=== PATIENT | male | born 1980 | race Caucasian/White ===

== ENCOUNTER 2020-05-04 11:55 | Emergency (ER) | payer OTHER, SELFPAY ==
--- NOTE | 2020-05-04 | ECG_ITS ---
Test Reason : CRISIS Blood Pressure : / mmHG Vent. Rate : 072 BPM Atrial Rate : 072 BPM P-R Int : 154 ms QRS Dur : 116 ms QT Int : 374 ms P-R-T Axes : 051 -02 027 degrees QTc Int : 409 ms Normal sinus rhythm Left ventricular hypertrophy with QRS widening Nonspecific T wave abnormality Abnormal ECG When compared with ECG of 08-DEC-2019 23:07, No significant change was found Referred By: Alan Armijo Electronically Signed By:JAMI HARGROVE
[2020-05-04 12:00] VITALS: BP 130/93; PULSE 112; RESP 18; TEMP 36.8; O2SAT 98; BMI 30.1
--- NOTE | 2020-05-04 12:24 | ED_ITS ---
HPI - Psych General Chief Complaint: Psychiatric Symptoms Stated Complaint: crisis wants to harm self Time Seen by Provider: 05/04/20 12:24 Source: patient Mode of arrival: ambulatory Limitations: no limitations History of Present Illness MD complaint: suicidal ideation and feels depressed Onset (ago): week(s) (few) Duration: constant History of same: Yes Relieving factors: none Exacerbating factors: none Context: not taking psychiatric medications and significant life stressor Associated psychiatric symptoms: depression and suicidal ideation Associated symptoms: denies other symptoms Treatments prior to arrival: none If self harm: admits thoughts of self harm Related Data Allergies Allergy/AdvReac Type Severity Reaction Status Date / Time No Known Allergies Allergy Unverified 02/10/20 16:41 [No Known Allergies*] Review of Systems Review of Systems: Constitutional : No Fever, No Chills ENT/Mouth : No Ear Pain, No Nasal Congestion, No sore throat Eyes: No Eye Pain, No Swelling, No Redness Cardiovascular : No Chest Pain, No SOB Respiratory : No Cough, No Sputum, No Dyspnea Gastrointestinal : No Nausea, No Vomiting, No Diarrhea, No Hematochezia, No Melena Genitourinary : No Dysuria, No Urinary Frequency, No Hematuria Musculoskeletal : No Myalgias Skin : No Skin Lesions, No rash Neuro : No Weakness, No Numbness, No Paresthesias, No Dizziness, No Headache Psych : positive Anxiety, positive Depression, positive SI, no HI Heme/Lymph: No Lymphadenopathy Endocrine : No Polyuria, No Polydipsia All other systems reviewed and are negative PMFSH Past Medical History Attestation statement: The following information was validated with the patient. Source: old records reviewed Medical History Anxiety Bipolar 1 disorder Depression Schizophrenia Social History Social History (Updated 05/04/20 @ 12:28 by Arlin Wright DO) Smoking Status: Current every day smoker Use of substances other than those prescribed or required for medical reasons: Yes Advance Directives: No Advance Directives Information Provided: Yes Physical Exam Vital Signs: Vital Signs: Last Vital Signs Temp 98.6 F 05/04/20 13:56 Pulse 101 H 05/04/20 13:56 Resp 16 05/04/20 13:56 BP 128/90 H 05/04/20 13:56 Pulse Ox 99 05/04/20 13:56 Body Mass Index 30.1 Appearance: Alert. Oriented X3. No acute distress. Eyes: Pupils equal, round and reactive to light. ENT: Pharynx normal. Neck: Normal inspection. Neck supple. CVS: Normal heart rate and rhythm. Pulses normal. Respiratory: No respiratory distress. Breath sounds normal. Abdomen: Soft and nontender. Skin: Skin warm and dry. Normal skin color. Normal skin turgor. Extremities: No lower extremity edema. No calf ttp Neuro: Oriented X 3. No motor deficit. No sensory deficit. CN 2 - 12intact Psych: + SI, + anxiety and depression Course Course Course Narrative: medically cleared for [facility] MDM - Psych MDM Narrative Medical decision making narrative: 39 yo male with depression/substance abuse here with SI will need labs, [facility] consult Lab Data Result diagrams: 05/04/20 13:06 05/04/20 13:06 Labs: Lab Results 05/04/20 05/04/20 05/04/20 Range/Units 13:06 13:06 13:06 WBC 11.4 H (4.8-10.8) X10*3/uL RBC 4.84 (4.60-5.80) X10*6/uL Hgb 15.0 (14.0-18.0) g/dl Hct 42.1 (42-52) % MCV 87.0 (80-98) fL MCH 31.0 (27.0-33.0) pg MCHC 35.6 (31.0-36.0) g/dl RDW 12.5 (11.0-16.0) % Plt Count 350 (160-400) X10*3/uL MPV 10.0 (9.4-12.4) fL Immature Gran % (Auto) 0.8 H (0.0-0.4) % Neut % (Auto) 78.4 H (45-73) % Lymph % (Auto) 14.7 L (20-40) % [place] % (Auto) 5.6 (2-11) % Eos % (Auto) 0.1 (0-4) % Baso % (Auto) 0.4 (0-2) % Lymph # (Auto) 1.7 (1.2-4.9) X10*3/uL [place] # (Auto) 0.6 (0.1-1.2) X10*3/uL Eos # (Auto) 0.0 (0.0-0.4) X10*3/uL Baso # (Auto) 0.0 (0.0-0.2) X10*3/uL Abs Immat Gran (auto) 0.09 H (0.00-0.03) X10*3/uL Absolute Neuts (auto) 8.9 H (2.0-8.3) X10*3/uL Absolute Nucleated RBC 0.000 (0.0-0.012) X10*3/uL Nucleated RBC % (auto) 0.0 (0.0-0.2) /100WBC Sodium 143 (135-145) mmol/L Potassium 3.3 (3.3-5.1) mmol/l Chloride 111 H (96-108) mmol/L Carbon Dioxide 22 (22-29) mmol/L Anion Gap 13 (12-20) BUN 9 (9-16) mg/dL Creatinine 0.90 (0.5-1.4) mg/dL Estim Creat Clear Calc 128.9 Estimated GFR > 60 Random Glucose 85 (60-115) mg/dL Calcium 10.3 H (8.4-10.2) mg/dL Total Bilirubin 0.7 (0.0-1.0) mg/dL Direct Bilirubin 0.2 (0.0-0.5) mg/dL AST 13 (5-37) U/L ALT 17 (0-40) U/L Alkaline Phosphatase 73 (39-117) U/L Total Protein 7.6 (6.5-8.0) g/dL Albumin 4.9 (3.5-5.0) g/dL Urine Opiates Screen (Not Detect) Ur Barbiturates Screen (Not Detect) Ur Phencyclidine Scrn (Not Detect) Ur Amphetamines Screen (Not Detect) U Benzodiazepines Scrn (Not Detect) Urine Cocaine Screen (Not Detect) U Marijuana (THC) Screen (Not Detect) Ethyl Alcohol < 10 mg/dL 05/04/20 Range/Units 13:06 WBC (4.8-10.8) X10*3/uL RBC (4.60-5.80) X10*6/uL Hgb (14.0-18.0) g/dl Hct (42-52) % MCV (80-98) fL MCH (27.0-33.0) pg MCHC (31.0-36.0) g/dl RDW (11.0-16.0) % Plt Count (160-400) X10*3/uL MPV (9.4-12.4) fL Immature Gran % (Auto) (0.0-0.4) % Neut % (Auto) (45-73) % Lymph % (Auto) (20-40) % [place] % (Auto) (2-11) % Eos % (Auto) (0-4) % Baso % (Auto) (0-2) % Lymph # (Auto) (1.2-4.9) X10*3/uL [place] # (Auto) (0.1-1.2) X10*3/uL Eos # (Auto) (0.0-0.4) X10*3/uL Baso # (Auto) (0.0-0.2) X10*3/uL Abs Immat Gran (auto) (0.00-0.03) X10*3/uL Absolute Neuts (auto) (2.0-8.3) X10*3/uL Absolute Nucleated RBC (0.0-0.012) X10*3/uL Nucleated RBC % (auto) (0.0-0.2) /100WBC Sodium (135-145) mmol/L Potassium (3.3-5.1) mmol/l Chloride (96-108) mmol/L Carbon Dioxide (22-29) mmol/L Anion Gap (12-20) BUN (9-16) mg/dL Creatinine (0.5-1.4) mg/dL Estim Creat Clear Calc Estimated GFR Random Glucose (60-115) mg/dL Calcium (8.4-10.2) mg/dL Total Bilirubin (0.0-1.0) mg/dL Direct Bilirubin (0.0-0.5) mg/dL AST (5-37) U/L ALT (0-40) U/L Alkaline Phosphatase (39-117) U/L Total Protein (6.5-8.0) g/dL Albumin (3.5-5.0) g/dL Urine Opiates Screen Not Detected (Not Detect) Ur Barbiturates Screen Not Detected (Not Detect) Ur Phencyclidine Scrn Not Detected (Not Detect) Ur Amphetamines Screen Not Detected (Not Detect) U Benzodiazepines Scrn Not Detected (Not Detect) Urine Cocaine Screen POSITIVE H (Not Detect) U Marijuana (THC) Screen Not Detected (Not Detect) Ethyl Alcohol mg/dL Discharge Plan Discharge Clinical Impression: Depression
[2020-05-04 13:15] LABS: MANUAL DIFF FLAG NO
[2020-05-04 13:19] LABS: Basophils Percent Auto 0.4 % (0-2); Eosinophils Percent Auto 0.1 % (0-4); Hematocrit 42.1 % (42-52); Imm Gran Abs Auto 0.09 X10*3/uL (0.00-0.03); Imm Gran Pct Auto 0.8 % (0.0-0.4); Lymphocytes Absolute Auto 1.7 X10*3/uL (1.2-4.9); Lymphocytes Percent Auto 14.7 % (20-40); Mean Corpuscular HGB Conc 35.6 g/dl (31.0-36.0); Monocytes Absolute Auto 0.6 X10*3/uL (0.1-1.2); Monocytes Percent Auto 5.6 % (2-11); Neutrophils Absolute Auto 8.9 X10*3/uL (2.0-8.3); Neutrophils Percent Auto 78.4 % (45-73); Platelet Count 350 X10*3/uL (160-400); Red Blood Count 4.84 X10*6/uL (4.60-5.80); Red Cell Distribution Width 12.5 % (11.0-16.0); White Blood Count 11.4 X10*3/uL (4.8-10.8)
[2020-05-04 13:46] LABS: Ethanol < 10 mg/dL
[2020-05-04 13:47] LABS: Amphetamine Screen Urine Not Detected (Not Detect); Barbiturates, Urine Not Detected (Not Detect); Benzodiazepines Screen Urine Not Detected (Not Detect); Cannabinoid Screen Urine Not Detected (Not Detect); Cocaine Screen Urine POSITIVE (Not Detect); Opiate Screen Urine Not Detected (Not Detect); Phencyclidine Screen Urine Not Detected (Not Detect)
[2020-05-04 13:49] LABS: Alanine Aminotransferase 17 U/L (0-40); Albumin Level 4.9 g/dL (3.5-5.0); Alkaline Phosphatase 73 U/L (39-117); Anion Gap 13 (12-20); Aspartate Amino Transferase 13 U/L (5-37); Bilirubin Direct 0.2 mg/dL (0.0-0.5); Bilirubin Total 0.7 mg/dL (0.0-1.0); Blood Urea Nitrogen 9 mg/dL (9-16); Calcium 10.3 mg/dL (8.4-10.2); Carbon Dioxide 22 mmol/L (22-29); Chloride 111 mmol/L (96-108); Creatinine Clr Calc Pharmacy 128.9; Estimated Glomerular Filt Rate > 60; Glucose Random 85 mg/dL (60-115); Potassium 3.3 mmol/l (3.3-5.1); Sodium 143 mmol/L (135-145); Total Protein 7.6 g/dL (6.5-8.0)
[2020-05-04 13:56] VITALS: BP 128/90; PULSE 101; RESP 16; TEMP 37; O2SAT 99
--- NOTE | 2020-05-04 14:30 | PC.NURSE ---
Faxed/Called to [facility]
[2020-05-04 17:03] VITALS: BP 132/81; PULSE 97; RESP 16; TEMP 36.9; O2SAT 100
[2020-05-04] MEDS: LORazepam 1 MG TABLET PO (18:22)
--- NOTE | 2020-05-04 18:28 | PC.NURSE ---
Pt arrived from main ED, affect sad, reports worsening depression. Reports he is currently living in [place] at a [facility]- states he went to [place] to live at a Sober [facility], but it 'didn't work out.' States he has been inquiring about bridges locally in order to choose the highest. CARE team in to evaluate.
--- NOTE | 2020-05-04 19:07 | PC.NURSE ---
Patient seems compliant/engaged with care team clinician, patient is on section 12 in-patient bed search per care team, no distress reported, will continue to monitor.
[2020-05-04 19:22] VITALS: BP 139/81; PULSE 79; RESP 18; TEMP 36.7; O2SAT 98
--- NOTE | 2020-05-04 19:26 | MHC.CARE ---
CARE Team meets with pt for assessment, as N was unable to see pt. Plan is for inpatient level of care. Statewide bedsearch will be initiated for both straight psych and dual dx inpt units. Pt is placed on a section 12 for safety, however is agreeable with this plan. Full evaluation to follow.
[2020-05-04 20:21] LABS: COVID-19 Test Negative (Negative); IDNOW Serial# 9DD0AD1C
[2020-05-04 21:46] VITALS: BP 131/81; PULSE 80; RESP 18; TEMP 36.6; O2SAT 98
--- NOTE | 2020-05-04 22:52 | MHC.CARE ---
Pt has been accepted to [facility] for 8:30AM admission. No nurse to nurse is needed unless there is a significant change or event, such as restraint. [address], [place], [place] [id number] , press 1 for admissions. Admitting Doc- Dr. Miller Authorization provided by Michelle at [facility] 5 days 05/05/20-05/09/20 Auth #: [id number] Authorizatrion was provided to Jennifer at [facility] EKG will be sent
--- NOTE | 2020-05-04 23:20 | PC.NURSE ---
Care team called/notified that patient is been accepted to [facility], Accepting LAITH Jolly at 08.30 on 05/05/20, transfer paper in process, patient made aware/agreement with plan, denied distress, will continue to monitor.
[2020-05-05] MEDS: LORazepam 1 MG TABLET 2 MG PO (00:05)
--- NOTE | 2020-05-05 00:08 | PC.NURSE ---
Patient reported having racing thought and anxious, provider notified/ordered Ativan 2 mg/administered as ordered/patient compliant/pending effect, will continue to monitor.
[2020-05-05 02:02] VITALS: BP 121/94; PULSE 76; RESP 17; TEMP 36.9; O2SAT 98
--- NOTE | 2020-05-05 02:06 | PC.NURSE ---
PATIENTS BP IS 121/94 RN JACLYN AWARE. PT IS AWAKE AND ALERT CALM AND COOPERATIVE BUT HAVING TROUBLE SLEEPING.
== END 2020-05-05 06:42 ==
PROVIDERS: Emergency Medicine; Nurse Practitioner Primary Care; Emergency Provider Internal Medicine
DX: F32.9 Major depressive disorder, single episode, unspecified (principal); R45.851 Suicidal ideations; Z20.828 Contact with and (suspected) exposure to other viral communicable diseases; F14.10 Cocaine abuse, uncomplicated; F41.9 Anxiety disorder, unspecified; F20.9 Schizophrenia, unspecified; F31.9 Bipolar disorder, unspecified; F17.200 Nicotine dependence, unspecified, uncomplicated
CPT/HCPCS: 36415; 80048; 80076; 80307; 80320; 85025; 87635; 93005; 99285

== ENCOUNTER 2023-09-29 07:37 | Emergency (ER) | payer OTHER, SELFPAY ==
[2023-09-29 07:58] VITALS: BP 142/96; PULSE 77; RESP 16; TEMP 36.8; O2SAT 99; BMI 30.3
--- NOTE | 2023-09-29 09:19 | ED.PSYCH ---
HPI - Psych General Chief Complaint: Psychiatric Symptoms Stated Complaint: not feeling safe Time Seen by Provider: 09/29/23 08:41 Source: patient Mode of arrival: ambulatory Limitations: no limitations History of Present Illness HPI Narrative: 42 yo m hx polysubstance abuse, bipolar, anxiety, depression and schizophrenia presents w. racing thoughts, visual and auditory hallucinations X few days reports he was recently soberly however relapsed has used drugs 3 times in the last 29 days. Last used last night fentanyl. Also reports he snorts heroin, cocaine and adderall. No alcohol. No suicidal or homicidal ideations. Reports he just feels like he needs to be seen. No medical complaints today. Related Data Allergies Allergy/AdvReac Type Severity Reaction Status Date / Time No Known Allergies Allergy Verified 09/29/23 08:04 [No Known Allergies*] Review of Systems Review of Systems: Constitutional : No Weight loss, No Fever, No Chills, No Fatigue, No Malaise ENT/Mouth : No sore throat, No Rhinorrhea Eyes: No Eye Pain, No Swelling, No Redness Cardiovascular : No Chest Pain, No SOB, No Dyspnea on Exertion, No Orthopnea, No Edema, No Palpitations Respiratory : No Cough, No Sputum, No Wheezing Gastrointestinal : No Nausea, No Vomiting, No Diarrhea, No Constipation, No abdominal Pain, No Hematochezia, No Melena Genitourinary : No Dysuria, No Urinary Frequency, No Hematuria, Musculoskeletal : No joint pain, No Myalgias, No Joint Swelling Skin : No Skin Lesions, No rash Neuro : No Weakness, No Numbness, No Dizziness, No Headache Psych : No Anxiety/Panic, No Depression, + hallucinations. All other systems reviewed and are negative Yes all other systems are reviewed and are negative [facility] Past Medical History Attestation statement: The following information was validated with the patient. Source: old records reviewed and nursing notes reviewed Medical History Anxiety Bipolar 1 disorder Depression Schizophrenia Social History Social History (Updated 05/04/20 @ 12:28 by Kia Wright DO) Advance Directives: No Advance Directives Information Provided: Yes Do you have a plan to hurt others: No Plan Physical Exam Vital Signs: Vital Signs: Last Vital Signs Temp 98.3 F 09/29/23 07:58 Pulse 77 09/29/23 07:58 Resp 16 09/29/23 07:58 BP 142/96 H 09/29/23 07:58 Pulse Ox 99 09/29/23 07:58 O2 Del Method Room Air 09/29/23 07:58 BMI result Body Mass Index 30.3 vss Appearance: Alert.? Oriented X3.? No acute distress.?Appears slightly anxious and paranoid Head: Normocephalic, atraumatic, no step-offs or deformities Eyes: Pupils equal, round and reactive to light.? Neck: Normal inspection.? Neck supple.? CVS: Normal heart rate and rhythm.? Pulses normal.? Respiratory: No respiratory distress.? Breath sounds normal.? Abdomen: Soft and nontender.? Skin: Skin warm and dry.? Normal skin color.? Normal skin turgor.? Extremities: No lower extremity edema.? No calf ttp. 5/5 strength to bilateral upper and lower extremities Neuro: Oriented X 3.? No motor deficit.? No sensory deficit. CN 2-12 intact Course Reevaluation(s) Reevaluation #1: CBC normocytic anemia. Chemistry no acute findings requiring intervention, chronically elevated calcium. UA clean. Urine tox + opiates, methadone, fentanyl, amphetamines, benzos. Ethanol negative. At this time patient to be placed into obs to be evaluated by care team. At time obs was started patient calm, coooperative, no acute distress. Time: 11:02 Medical Decision Making Medical Decision Making [facility] Narrative: 923 42 yo m presents w/ hallucinations and paranoia. Recent drug use after being sober for some time PE anxious and paranoid appearing Hx and pe concerning for bipolar, schizophrenia and polysubstance abuse. Unlikley ich, stroke, posterior stroke, encephalitis, meningitis. Plan- labs, urine, long, ethanol, care team eval. Differential Diagnosis Differential Diagnoses: The differential diagnosis associated with the presentation includes Hx and pe concerning for bipolar, schizophrenia and polysubstance abuse. Unlikley ich, stroke, posterior stroke, encephalitis, meningitis. Admission/Observation Consideration of admission/observation: Escalation of care including admission/observation considered Lab Data [facility] Lab Attestation statement: I reviewed the patient's lab results. 09/29/23 09:16 09/29/23 09:16 Labs: Lab Results 05/06/24 05/06/24 Range/Units 09:16 10:03 WBC 8.3 (4.8-10.8) X10*3/uL RBC 4.57 L (4.60-5.80) X10*6/uL Hgb 13.8 L (14.0-18.0) g/dl Hct 40.7 L (42.0-52.0) % MCV 89.1 (80.0-98.0) fL MCH 30.2 (27.0-33.0) pg MCHC 33.9 (31.0-36.0) g/dl RDW 14.3 (11.0-16.0) % Plt Count 326 (160-400) X10*3/uL MPV 9.3 L (9.4-12.4) fL Immature Gran % (Auto) 0.7 H (0.0-0.4) % Neut % (Auto) 56.2 (45-73) % Lymph % (Auto) 30.9 (20-40) % [place] % (Auto) 7.8 (2-11) % Eos % (Auto) 3.8 (0-4) % Baso % (Auto) 0.6 (0-2) % Lymph # (Auto) 2.6 (1.2-4.9) X10*3/uL [place] # (Auto) 0.6 (0.1-1.2) X10*3/uL Eos # (Auto) 0.3 (0.0-0.4) X10*3/uL Baso # (Auto) 0.1 (0.0-0.2) X10*3/uL Abs Immat Gran (auto) 0.06 H (0.00-0.03) X10*3/uL Absolute Neuts (auto) 4.6 (2.0-8.3) x10*3/uL Absolute Nucleated RBC 0.000 (0.0-0.012) X10*3/uL Nucleated RBC % (auto) 0.0 (0.0-0.2) /100WBC Sodium 143 (135-145) mmol/L Potassium 4.7 (3.3-5.1) mmol/L Chloride 109 H (96-108) mmol/L Carbon Dioxide 25 (22-29) mmol/L Anion Gap 14 (12-20) BUN 11 (9-16) mg/dL Creatinine 0.90 (0.5-1.4) mg/dL Estim Creat Clear Calc 121.6 Estimated GFR > 60 Random Glucose 103 (60-115) mg/dL Calcium 11.6 H D (8.4-10.2) mg/dL Total Bilirubin 0.5 (0.0-1.0) mg/dL AST 14 (5-37) U/L ALT 25 (0-40) U/L Alkaline Phosphatase 58 (39-117) U/L Total Protein 7.5 (6.5-8.0) g/dL Albumin 4.7 (3.5-5.0) g/dL Urine Color Yellow Urine Appearance Clear Urine pH 5.5 (5.0-9.0) Ur Specific [place] 1.010 (1.005-1.025) Urine Protein Negative (Neg-Trace) mg/dL Urine Glucose (UA) Negative (Negative) mg/dL Urine Ketones Negative (Negative) mg/dL Urine Blood Negative (Negative) Urine Nitrite Negative (Negative) Ur Leukocyte Esterase Negative (Negative) Salicylates < 5.0 L (15-30) mg/dL Urine Opiates Screen POSITIVE H (Not Detect) Ur Buprenorphine Scrn Not Detected (Not Detect) ng/mL Ur Oxycodone Screen Not Detected (Not Detect) ng/mL Urine Methadone Screen Positive H (Not Detect) ng/mL Urine Fentanyl Screen POSITIVE H (Not Detect) Acetaminophen < 3 (<30) mcg/mL Ur Barbiturates Screen Not Detected (Not Detect) Ur Phencyclidine Scrn Not Detected (Not Detect) Ur Amphetamines Screen POSITIVE H (Not Detect) U Benzodiazepines Scrn POSITIVE H (Not Detect) Urine Cocaine Screen Not Detected (Not Detect) U Marijuana (THC) Screen Not Detected (Not Detect) Ethyl Alcohol < 10 mg/dL Critical Care Time Critical Care Time Critical Care Time: No Discharge Plan 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
[2023-09-29 09:20] LABS: MANUAL DIFF FLAG NO
[2023-09-29 09:26] LABS: Basophils Absolute Auto 0.1 X10*3/uL (0.0-0.2); Basophils Percent Auto 0.6 % (0-2); Eosinophils Absolute Auto 0.3 X10*3/uL (0.0-0.4); Eosinophils Percent Auto 3.8 % (0-4); Hematocrit 40.7 % (42.0-52.0); Hemoglobin 13.8 g/dl (14.0-18.0); Imm Gran Abs Auto 0.06 X10*3/uL (0.00-0.03); Imm Gran Pct Auto 0.7 % (0.0-0.4); Lymphocytes Absolute Auto 2.6 X10*3/uL (1.2-4.9); Lymphocytes Percent Auto 30.9 % (20-40); Mean Corpuscular HGB Conc 33.9 g/dl (31.0-36.0); Mean Corpuscular Hemoglobin 30.2 pg (27.0-33.0); Mean Corpuscular Volume 89.1 fL (80.0-98.0); Mean Platelet Volume 9.3 fL (9.4-12.4); Monocytes Absolute Auto 0.6 X10*3/uL (0.1-1.2); Monocytes Percent Auto 7.8 % (2-11); Neutrophils Absolute Auto 4.6 x10*3/uL (2.0-8.3); Neutrophils Percent Auto 56.2 % (45-73); Platelet Count 326 X10*3/uL (160-400); Red Blood Count 4.57 X10*6/uL (4.60-5.80); Red Cell Distribution Width 14.3 % (11.0-16.0); White Blood Count 8.3 X10*3/uL (4.8-10.8)
[2023-09-29 09:41] LABS: Acetaminophen LAB < 3 mcg/mL (<30); Alanine Aminotransferase 25 U/L (0-40); Albumin Level 4.7 g/dL (3.5-5.0); Alkaline Phosphatase 58 U/L (39-117); Anion Gap 14 (12-20); Aspartate Amino Transferase 14 U/L (5-37); Bilirubin Total 0.5 mg/dL (0.0-1.0); Blood Urea Nitrogen 11 mg/dL (9-16); Calcium 11.6 mg/dL (8.4-10.2); Carbon Dioxide 25 mmol/L (22-29); Chloride 109 mmol/L (96-108); Creatinine Clr Calc Pharmacy 121.6; Estimated Glomerular Filt Rate > 60; Ethanol < 10 mg/dL; Glucose Random 103 mg/dL (60-115); Potassium 4.7 mmol/L (3.3-5.1); Salicylate < 5.0 mg/dL (15-30); Sodium 143 mmol/L (135-145); Total Protein 7.5 g/dL (6.5-8.0)
[2023-09-29 10:18] LABS: Appearance Urine Clear; Color Urine Yellow; Glucose Urine UA Negative (Negative); Leukocyte Esterase Urine Negative (Negative); Nitrite Urine Negative (Negative); PH 5.5 (5.0-9.0); Urine Blood Negative (Negative); Urine Ketones Negative (Negative); Urine Protein Negative (Neg-Trace)
[2023-09-29 10:46] LABS: Amphetamine Screen Urine POSITIVE (Not Detect); Barbiturates, Urine Not Detected (Not Detect); Benzodiazepines Screen Urine POSITIVE (Not Detect); Buprenorphine Scr Not Detected (Not Detect); Cannabinoid Screen Urine Not Detected (Not Detect); Cocaine Screen Urine Not Detected (Not Detect); Fentanyl, urine POSITIVE (Not Detect); Methadone Screen, Urine Positive (Not Detect); Opiate Screen Urine POSITIVE (Not Detect); Oxycodone Screen Urine Not Detected (Not Detect); Phencyclidine Screen Urine Not Detected (Not Detect)
--- NOTE | 2023-09-29 19:04 | PC.NURSE ---
patient appears to remain asleep at present respiratoins are even and unlabored patient apppears in no distress
[2023-09-29] MEDS: Acetaminophen 325 MG TABLET 975 MG PO (19:50)
[2023-09-29 21:48] VITALS: BP 126/94; PULSE 77; RESP 18; TEMP 36.7; O2SAT 97
[2023-09-30 01:00] VITALS: BP 137/95; PULSE 80; RESP 16; TEMP 36.2; O2SAT 97
--- NOTE | 2023-09-30 07:16 | PC.NURSE ---
Assumed care of patient at 0645. Patient is observed resting quietly in there bed at this time. No signs of distress, breathing is even and unlabored at this time. Will continue plan of care.
[2023-09-30] MEDS: methADONE HCl 20 MG/2 ML ORAL.CONC PO (09:00)
[2023-09-30] MEDS: LORazepam 1 MG TABLET 2 MG PO (09:27)
[2023-09-30 12:22] VITALS: BP 137/85; PULSE 98; RESP 14; TEMP 36.5; O2SAT 93
--- NOTE | 2023-09-30 16:29 | MHC.CARE ---
RAD Team conducted a dual diagnosis bed search for this individual, however, there are no beds available at this time. This bed search is now exhausted and will continue tomorrow if deemed appropriate.
--- NOTE | 2023-09-30 19:59 | PC.NURSE ---
patient appears to remain at rest at present respirations are even and ulabored patient appears in no distress.
--- NOTE | 2023-09-30 20:01 | PM.EVENT ---
Event Note Date of Service: 09/30/23 Event Note: Addiction Note Patient in area of ED awaiting psychiatric admission RN in ED notified this card writer hand that patient was in acute opiate withdrawal and requesting methadone (20mg specifically) Reported previously being on methadone -unclear when last dose was UDS reviewed +fentanyl, methadone and cocaine COWS documented as 14 -methadone 20mg X1 Per RN patient able to shower and observed in milieu following medication admin. Reporting positive effect from medication. Plan: -methadone 20mg in AM (09/30) -pending psychiatric admission Time Spent With Patient Time: Total time managing care of this patient today ____ minutes.
--- NOTE | 2023-09-30 21:37 | PC.NURSE ---
patient periodically asks for meds and presents to t/w with condescending attitude re taking vitamins multiple sclerosis to the lay person ...asking later after asking for a sleep med and later if this story writer recalls how melatonin works in the body...(paranoid tinge?)
[2023-09-30 23:53] VITALS: BP 158/111; PULSE 100; RESP 18; TEMP 37.1; O2SAT 97
--- NOTE | 2023-10-01 05:16 | PC.NURSE ---
Pt sleeping at the bedside. No apparent distress noted. Breaths are even regular and unlabored with equal chest rises. Monitoring is ongoing.
--- NOTE | 2023-10-01 07:33 | PC.NURSE ---
Assumed care of patient at 0645. Patient is observed sitting quietly in the milieu. No signs of distress observed. Breathing is equal and unlabored. Will continue plan of care.
[2023-10-01 07:57] VITALS: BP 134/90; PULSE 92; RESP 12; TEMP 36.4; O2SAT 100
--- NOTE | 2023-10-01 09:36 | MHC.CARE ---
Pt referred to [facility]
[2023-10-01] MEDS: Multivitamin TABLET 1 TAB PO (09:40)
[2023-10-01] MEDS: Cholecalciferol (Vitamin D3) 25 MCG TABLET 125 MCG PO (09:40)
[2023-10-01] MEDS: LORazepam 1 MG TABLET PO (09:40)
--- NOTE | 2023-10-01 10:06 | PC.NURSE ---
Methadone Refusal Patient refused methadone 20mg this morning. Patient reports that he wasn't sure if he was gonna take the methadone this morning or not, but decided against taking it. Will continue plan of care.
[2023-10-01] MEDS: methADONE HCl 20 MG/2 ML ORAL.CONC PO (10:52)
--- NOTE | 2023-10-01 11:54 | MHC.CARE ---
Addendum entered by TIMUR Sutton 10/01/23 13:58: Patient has now declined a dual bed and will be discharged. Original Note: Patient has been accepted to [facility] for today, 10/01/23. The address is [address] [place] [address]. Accepting doc is Dr. Andres. ETA is 3;30 or anytime after.
[2023-10-01 15:03] VITALS: BP 134/90; PULSE 92; RESP 12; TEMP 36.4; O2SAT 100
--- NOTE | 2023-10-01 15:06 | PC.NURSE ---
Discharge Patient is ambulatory on discharge. Patient denies suicidal and homicidal ideations upon discharge. Patient denies auditory and visual hallucinations on discharge. Patient verbalizes readiness for discharge. All belongings returned. Breathing is even and unlabored, no distress observed.
== END 2023-10-01 15:07 | disposition home or self-care (01) ==
PROVIDERS: Emergency Provider Emergency Medicine
DX: F19.951 Other psychoactive substance use, unspecified with psychoactive substance-induced psychotic disorder with hallucinations (principal); F11.90 Opioid use, unspecified, uncomplicated; F06.8 Other specified mental disorders due to known physiological condition; F31.9 Bipolar disorder, unspecified; F20.9 Schizophrenia, unspecified
CPT/HCPCS: 36415; 80053; 80143; 80179; 80307; 81003; 85025; 99285; S9485

== ENCOUNTER 2024-01-17 08:43 | Emergency (ER) | payer OTHER, SELFPAY ==
[2024-01-17 08:44] VITALS: BP 147/99; PULSE 99; RESP 20; TEMP 36.5; O2SAT 99; BMI 27.1
[2024-01-17 09:15] LABS: Appearance Urine Clear; Color Urine Yellow; Glucose Urine UA Negative (Negative); Leukocyte Esterase Urine Negative (Negative); Nitrite Urine Negative (Negative); PH 5.5 (5.0-9.0); Specific Gravity - Urine 1.025 (1.005-1.025); Urine Blood Negative (Negative); Urine Ketones 15 mg/dL (Negative); Urine Protein Trace mg/dL (Neg-Trace)
--- NOTE | 2024-01-17 09:19 | ED_ITS ---
HPI - Psych General Chief Complaint: ETOH/Substance Use Stated Complaint: detox Time Seen by Provider: 01/17/24 09:05 Source: patient Mode of arrival: ambulatory Limitations: no limitations History of Present Illness ED Provider: Nicolette JAIN HPI Narrative: 43 year old female hx of ivda no longer using IV, alcohol use disorder presents requesting detox from adderall, cocaine, Xanax & fentanyl ( last used 0100). He has been abusing his RX meds, taking more than prescribed. Not SI or HI. He is hoping to go to detox, has gone in the past and it has been effective. He is also a daily cigaret smoker currently. No medical complaints. Related Data Home Medications ?Medication ?Instructions ?Recorded ?Confirmed cholecalciferol (vitamin D3) 5,000 units PO 2XW 09/30/23 09/30/23 multivitamin 1 tab PO DAILY 09/30/23 09/30/23 Allergies Allergy/AdvReac Type Severity Reaction Status Date / Time No Known Allergies Allergy Verified 01/17/24 08:48 [No Known Allergies*] Review of Systems Review of Systems: Yes all other systems are reviewed and are negative [facility] Past Medical History Attestation statement: The following information was validated with the patient. Source: old records reviewed and nursing notes reviewed Medical History Schizophrenia Bipolar 1 disorder Anxiety Depression Social History Social History Substance Use Type: Amphetamines, Crack/Cocaine, Heroin and Opiates Advance Directives: No Advance Directives Information Provided: No Physical Exam Vital Signs: Vital Signs: Last Vital Signs Temp 97.7 F 01/17/24 08:44 Pulse 99 01/17/24 08:44 Resp 20 01/17/24 08:44 BP 147/99 H 01/17/24 08:44 Pulse Ox 99 01/17/24 08:44 O2 Del Method Room Air 01/17/24 08:44 BMI result Body Mass Index 27.1 vss Appearance: Alert.? Oriented X3.? No acute distress.? Head: Normocephalic, atraumatic, no step-offs or deformities Eyes: Pupils equal, round and reactive to light.? CVS: Normal heart rate and rhythm.? Pulses normal.? Respiratory: No respiratory distress.? Breath sounds normal.? Abdomen: Soft and nontender.? Skin: Skin warm and dry.? Normal skin color.? Normal skin turgor.? Extremities: No lower extremity edema.? No calf ttp. 5/5 strength to bilateral upper and lower extremities Neuro: Oriented X 3.? No motor deficit.? No sensory deficit. CN 2-12 intact Course Reevaluation(s) Reevaluation #1: Patient now wants to leave. No longer wants to be here. Time: 09:33 Reevaluation #2: Patient positive for opiates, methadone, fentanyl, amphetamines, benzodiazepines, cocaine. Time: 09:38 Reevaluation #3: Called care team to come try to speak to patient as he wanted to leave. He eloped from the department. He has not SI or HI. No indication for Section. Time: 09:43 Medical Decision Making Medical Decision Making [facility] Narrative: 919 43 year old male presents requesting detox PE benign Hx and pe concerning for addiction. Unlikely metabolic derangements. Plan- labs, long Differential Diagnosis Differential Diagnoses: The differential diagnosis associated with the presentation includes Hx and pe concerning for addiction. Unlikely metabolic derangements. Admission/Observation Consideration of admission/observation: Escalation of care including admission/observation considered Lab Data [facility] Lab Attestation statement: I reviewed the patient's lab results. Labs: Lab Results 01/17/24 Range/Units 09:02 Urine Color Yellow Urine Appearance Clear Urine pH 5.5 (5.0-9.0) Ur Specific [place] 1.025 (1.005-1.025) Urine Protein Trace (Neg-Trace) mg/dL Urine Glucose (UA) Negative (Negative) mg/dL Urine Ketones 15 (Negative) mg/dL Urine Blood Negative (Negative) Urine Nitrite Negative (Negative) Ur Leukocyte Esterase Negative (Negative) Urine Opiates Screen POSITIVE H (Not Detect) Ur Buprenorphine Scrn Not Detected (Not Detect) ng/mL Ur Oxycodone Screen Not Detected (Not Detect) ng/mL Urine Methadone Screen Positive H (Not Detect) ng/mL Urine Fentanyl Screen POSITIVE H (Not Detect) Ur Barbiturates Screen Not Detected (Not Detect) Ur Phencyclidine Scrn Not Detected (Not Detect) Ur Amphetamines Screen POSITIVE H (Not Detect) U Benzodiazepines Scrn POSITIVE H (Not Detect) Urine Cocaine Screen POSITIVE H (Not Detect) U Marijuana (THC) Screen Not Detected (Not Detect) Chronic Conditions Patient?s care impacted by: Other (polysubstance abuse ) Critical Care Time Critical Care Time Critical Care Time: No Discharge Plan Discharge Clinical Impression: Polysubstance abuse, Left against medical advice Patient Disposition: Home, Self-Care Instructions: Polysubstance Abuse (ED), Against Medical Advice (ED) Additional Instructions: Take your medications as prescribed. If you were prescribed antibiotics today, it is important that you take your medication to their entirety, do not skip any doses, do not finish them early. Follow-up with your primary care provider this week. Return to the emergency department with new or worsening symptoms. Such as fevers, chills, chest pain, shortness of breath, nausea, vomiting, dizziness, headache, vision changes, lethargy In case of emergency call 911 Prescriptions: No Action cholecalciferol (vitamin D3) 5,000 units PO 2XW multivitamin 1 tab PO DAILY Referrals: Physician,None [Primary Care Provider] - 2 days Print Language: [place] Citizen
[2024-01-17 09:30] LABS: Amphetamine Screen Urine POSITIVE (Not Detect); Barbiturates, Urine Not Detected (Not Detect); Benzodiazepines Screen Urine POSITIVE (Not Detect); Buprenorphine Scr Not Detected (Not Detect); Cannabinoid Screen Urine Not Detected (Not Detect); Cocaine Screen Urine POSITIVE (Not Detect); Fentanyl, urine POSITIVE (Not Detect); Methadone Screen, Urine Positive (Not Detect); Opiate Screen Urine POSITIVE (Not Detect); Oxycodone Screen Urine Not Detected (Not Detect); Phencyclidine Screen Urine Not Detected (Not Detect)
--- NOTE | 2024-01-17 09:52 | PC.NURSE ---
Addendum entered by Kameron Varela 01/17/24 09:56: pt declined to stay to sign AMA paperwork, provider aware. Original Note: security at bedside, belongings searched and cleared, pt requesting to speak to crisis for a quick discharge, CARE team aware. pt ambulated out of ED w jorgito chase, consulted in waiting room w pt. pt declines resources at this time stating that he has things to attend to. pt denies SI/HI, left w.o d/c paperwork/vitals/referrals. pt verbalized understanding of ability to return to ED in the future if looking for help w polysubstace use.
--- NOTE | 2024-01-17 09:53 | MHC.CARE ---
CARE Team responded to consult request for this patient who self-presented to the ED this morning seeking detox. Spoke to patient who who is known through prior inpatient admissions and detox placements, he stated he no longer wants treatment at this time. Patient reported he knows the resources available and is aware that [place] [facility] mental health treatment at any time. ED provider, KYRIE Blum updated
== END 2024-01-17 09:59 | disposition home or self-care (01) ==
PROVIDERS: Emergency Provider Emergency Medicine
DX: F19.10 Other psychoactive substance abuse, uncomplicated (principal); Z53.29 Procedure and treatment not carried out because of patient's decision for other reasons
CPT/HCPCS: 80307; 81003; 99282; 99283

== ENCOUNTER 2024-01-17 21:57 | Emergency (ER) | payer OTHER, SELFPAY ==
[2024-01-17 21:58] VITALS: BP 150/98; PULSE 110; RESP 20; TEMP 37.2; O2SAT 100; BMI 27.4
== END 2024-01-18 00:09 | disposition left against medical advice (07) ==
PROVIDERS: Emergency Provider Emergency Medicine
DX: F19.10 Other psychoactive substance abuse, uncomplicated (principal); Z53.21 Procedure and treatment not carried out due to patient leaving prior to being seen by health care provider
CPT/HCPCS: 99281

== ENCOUNTER 2024-02-29 04:51 | Emergency (ER) | payer OTHER, SELFPAY ==
[2024-02-29 04:54] VITALS: BP 136/90; PULSE 96; RESP 18; TEMP 36.6; O2SAT 97; BMI 26.5
--- NOTE | 2024-02-29 07:34 | ED.GENADULT ---
HPI - General Adult General Chief complaint: ETOH/Substance Use Stated complaint: depressed Time Seen by Provider: 02/29/24 07:30 Source: patient Mode of arrival: ambulatory Limitations: no limitations History of Present Illness ED Provider: DR. Nicholas HPI narrative: 43-year-old male history street drug abuse mostly fentanyl and cocaine and alcohol abuse, came in for evaluation of depression and suicidal ideation without plan. Patient is seeking detox and evaluation of depression. Patient declined chest pain, abdominal pain, headache, nausea, vomiting, fever. Related Data Home Medications ?Medication ?Instructions ?Recorded ?Confirmed cholecalciferol (vitamin D3) 5,000 units PO 2XW 09/30/23 09/30/23 multivitamin 1 tab PO DAILY 09/30/23 09/30/23 Allergies Allergy/AdvReac Type Severity Reaction Status Date / Time No Known Allergies Allergy Verified 02/29/24 04:56 [No Known Allergies*] Review of Systems Review of Systems: All other systems are reviewed and are negative Constitutional: Reports as per HPI and Reports no additional constitutional complaints Eyes: Reports as per HPI and Reports no additional eye complaints Reports system reviewed and no additional complaints, except as documented Cardiovascular: Reports as per HPI and Reports no additional cardiovascular complaints Respiratory: Reports as per HPI and Reports no additional respiratory complaints Gastrointestinal: Reports as per HPI and Reports no additional gastrointestinal complaints Genitourinary: Reports no additional female genitourinary complaints Musculoskeletal: Reports no additional musculoskeletal complaints Skin/Breast: Reports system reviewed and no additional complaints, except as docu Psychiatric: Reports no additional psychiatric complaints Endocrine: Reports no additional endocrine complaints Hematologic/Lymphatic: Reports no additional hematologic/lymphatic complaints Allergic/Immunologic: Reports no additional allergic/immunologic complaints Reports system reviewed and no additional complaints, except as documented and Reports Abnormal speech present [facility] Past Medical History Medical History Schizophrenia Bipolar 1 disorder Anxiety Depression Social History Social History Smoked in Last 30 Days: Yes Use of substances other than those prescribed or required for medical reasons: Yes Substance Use Type: Crack/Cocaine and Other Substance Use Type Other:: Fentanyl Advance Directives: No Advance Directives Information Provided: No Do you have a plan to hurt others: No Plan Physical Exam ED Vital Signs: Vital Signs - 24 hr 02/29/24 04:54 Temperature 97.9 F Pulse Rate 96 Respiratory Rate 18 Blood Pressure 136/90 H Pulse Oximetry 97 Oxygen Delivery Method Room Air BMI result Body Mass Index 26.5 Vital signs have been reviewed and appear to be correct. Blood pressure elevated. Heart rate normal. Respiratory rate normal. Temperature normal. Oxygen saturation normal. Appearance: Alert. Oriented X3. No acute distress. Head: Normal external exam. Normocephalic. Atraumatic. No Solis signs noted. No raccoon eyes noted Eyes: PERRLA. EOMI. Conjunctiva and sclera normal. Eyelids normal. ENT: TM's Normal. Pharynx normal. Uvula midline. Moist mucous membranes. No trismus noted. No drooling noted. No muffled voice noted. Neck: Normal inspection. Neck supple. FROM. No adenopathy. Thyroid Normal. No meningeal signs. No neck mass noted. CVS: Normal heart rate and rhythm. Heart sound normal. No murmurs noted. Pulses normal throughout. Respiratory: No respiratory distress. Painless inspiration. Breath sounds normal. No wheezes/rales/rhonchi noted. Chest nontender. No accessory muscle usage noted or decreased air movement noted. Abdomen: Soft and nontender. Bowel sounds normal in all 4 quadrants. No distention noted. No organomegaly noted. No visible injury noted. Back: No CVA tenderness. Full range of motion noted. Skin: Skin warm and dry. Normal skin color. Normal skin turgor. No rashes/lesions/lacerations noted. Extremities: No lower extremity edema. Extremities exhibit normal range of motion. Extremities nontender. Neuro: Oriented X 3. Cranial nerve exam: II-XII are grossly intact No motor deficit. No sensory deficit. Reflexes normal. Course Reevaluation(s) Reevaluation #1: Medically clear, await for care team evaluation, will start physician observation. Time: 10:00 Medical Decision Making Differential Diagnosis Differential Diagnoses: The differential diagnosis associated with the presentation includes ( Opiate withdrawal, substance abuse, electrolyte derangement, severe anemia, alcohol intoxication, acute psychosis , medical clearance.) Admission/Observation Consideration of admission/observation: Escalation of care including admission/observation considered Lab Data MDM Lab Attestation statement: I reviewed the patient's lab results. Discharge Plan Discharge Clinical Impression: Substance abuse, Depression Patient Disposition: Still a Patient Prescriptions: No Action cholecalciferol (vitamin D3) 5,000 units PO 2XW multivitamin 1 tab PO DAILY Print Language: Yi
--- NOTE | 2024-02-29 07:36 | ECG_ITS ---
Test Reason : SUBSTANCE ABUSE Blood Pressure : / mmHG Vent. Rate : 079 BPM Atrial Rate : 079 BPM P-R Int : 154 ms QRS Dur : 088 ms QT Int : 370 ms P-R-T Axes : 091 012 025 degrees QTc Int : 424 ms Normal sinus rhythm Normal ECG When compared with ECG of 04-MAY-2020 19:37, Nonspecific T wave abnormality no longer evident in Lateral leads Referred By: Ann Marie Nicholas Electronically Signed By:DAVID REYNOLDS
--- NOTE | 2024-02-29 08:02 | PC.NURSE ---
Resumed care of pt at 0700. Pt resting on stretcher quietly, a/ox4, no increased wob/sob noted, lung sounds cta bilaterally, s1 and s2 heard, abdomen soft, non-tender on palpation. Tech at bedside to obtain EKG. Labs and urine to be obtained. Call moore within reach, all needs met at this time.
--- NOTE | 2024-02-29 08:15 | PC.NURSE ---
security at bedside refusing to get changed at this time, this rn spoke with the pt and explained the procedure, pt is reporting that he has hx of MS and he is super cold at this time and is worried that it might make him go into a flare up- at this time pt did agree for a pat down with the understanding at some point when he gets warmer that he will need to change into hospital attire.
[2024-02-29 08:28] LABS: MANUAL DIFF FLAG NO
[2024-02-29 08:29] LABS: Basophils Absolute Auto 0.1 X10*3/uL (0.0-0.2); Basophils Percent Auto 0.6 % (0-2); Eosinophils Absolute Auto 0.2 X10*3/uL (0.0-0.4); Eosinophils Percent Auto 2.8 % (0-4); Hematocrit 36.4 % (42.0-52.0); Hemoglobin 12.7 g/dl (14.0-18.0); Imm Gran Abs Auto 0.06 X10*3/uL (0.00-0.03); Imm Gran Pct Auto 0.8 % (0.0-0.4); Lymphocytes Absolute Auto 2.5 X10*3/uL (1.2-4.9); Lymphocytes Percent Auto 30.8 % (20-40); Mean Corpuscular HGB Conc 34.9 g/dl (31.0-36.0); Mean Corpuscular Hemoglobin 30.3 pg (27.0-33.0); Mean Corpuscular Volume 86.9 fL (80.0-98.0); Mean Platelet Volume 9.1 fL (9.4-12.4); Monocytes Absolute Auto 0.6 X10*3/uL (0.1-1.2); Monocytes Percent Auto 7.2 % (2-11); Neutrophils Absolute Auto 4.6 x10*3/uL (2.0-8.3); Neutrophils Percent Auto 57.8 % (45-73); Platelet Count 266 X10*3/uL (160-400); Red Blood Count 4.19 X10*6/uL (4.60-5.80); Red Cell Distribution Width 13.4 % (11.0-16.0)
--- NOTE | 2024-02-29 08:37 | PC.NURSE ---
Attempted to very pt Methadone dose. Pt stated to this RN he gets his methadone from [facility], . Clinic stated they do not have this patient. This RN followed up with pt about clinic again, pt again stated [facility] in [place].
[2024-02-29 08:59] LABS: Alanine Aminotransferase 15 U/L (0-40); Albumin Level 4.1 g/dL (3.5-5.0); Alkaline Phosphatase 59 U/L (39-117); Anion Gap 10 (12-20); Aspartate Amino Transferase 15 U/L (5-37); Bilirubin Direct 0.1 mg/dL (0.0-0.5); Bilirubin Total 0.3 mg/dL (0.0-1.0); Blood Urea Nitrogen 13 mg/dL (9-16); Calcium 9.5 mg/dL (8.4-10.2); Carbon Dioxide 25 mmol/L (22-29); Chloride 110 mmol/L (96-108); Creatinine Clr Calc Pharmacy 122.6; Estimated Glomerular Filt Rate > 60; Glucose Random 98 mg/dL (60-115); Lipase 17 U/L (8-78); Potassium 3.6 mmol/L (3.3-5.1); Sodium 141 mmol/L (135-145); Total Protein 6.4 g/dL (6.5-8.0)
[2024-02-29 09:11] LABS: Ethanol < 10 mg/dL
--- NOTE | 2024-02-29 10:08 | PC.NURSE ---
Per MD Nicholas, pt stated he was SI during assessment. This RN just notified of pt making these statements. This RN assessed pt risk of SI. Pt states he didn't make SI statements . Pt refusing supervisor policy change clerks, security and tech at bedside for assistance. pt continues to deny SI.
[2024-02-29 10:14] VITALS: BP 107/65; PULSE 62; RESP 18; TEMP 36.6; O2SAT 98
--- NOTE | 2024-02-29 10:40 | PC.NURSE ---
Pt changed into hospital attire assisted by security, 1:1 sitter at bedside for safety. Unable to obtain urine sample at this time, will try again later.
--- NOTE | 2024-02-29 10:48 | PC.NURSE ---
Belongings locked in C[facility] of [facility]. Call moore within reach, all needs met at this time.
--- NOTE | 2024-02-29 11:10 | MHC.EDTECH ---
Pt upset and argumentative since arrival. Initially refusing changeover and EKG. Passively aggressively abusing staff calling us incompetent. Stating SI to MD but then redacting with RN. Patient Requested RN to call methadone clinic [facility] which I witnessed JAYLEN Martinez call and confirmed telephone number and clinic responded with Pt has no record at that clinic. Pt upset and escalated combative attitude/behavior and threatening remarks. MD Nicholas, JAYLEN Martinez, monorail charger operator Debra made aware and attempted to deescalate situation but security needed to be called and patient was ultimately spoken to by MD Nicholas and decision was made to d/c with hospital security officer from department.
[2024-02-29 11:15] VITALS: BP 0/0; PULSE 0; RESP 0; TEMP -17.7; TEMP 0; O2SAT 0
--- NOTE | 2024-02-29 11:16 | PC.NURSE ---
Pt up out of bed yelling at staff stating someone took my clothes without permission. Pt educated by this RN hospital policy to lock up belongings and ensure they are safe. Security at bedside for assistance/safety d/t pt increasing agitation. drill instructor and MD Nicholas made aware. Per MD Nicholas pt will be d/c. Pt refusing vitals on d/c, pt left ED with security steadt gait on RA.
== END 2024-02-29 11:18 | disposition home or self-care (01) ==
PROVIDERS: Emergency Provider Emergency Medicine
DX: F33.1 Major depressive disorder, recurrent, moderate (principal); F11.10 Opioid abuse, uncomplicated; F14.10 Cocaine abuse, uncomplicated; R94.31 Abnormal electrocardiogram [ECG] [EKG]; F10.10 Alcohol abuse, uncomplicated; Y90.9 Presence of alcohol in blood, level not specified; Z79.899 Other long term (current) drug therapy
CPT/HCPCS: 36415; 80048; 80076; 80307; 83690; 85025; 93005; 99285

== ENCOUNTER 2024-02-29 17:14 | Emergency (ER) | payer OTHER, SELFPAY ==
[2024-02-29 17:49] VITALS: BP 125/87; PULSE 73; RESP 19; TEMP 36.6; O2SAT 98; BMI 25.9
--- NOTE | 2024-02-29 17:51 | ED_ITS ---
HPI - General Adult General Chief complaint: General Medical Stated complaint: Multiple sclerosis Source: patient Mode of arrival: ambulatory Limitations: no limitations History of Present Illness ED Provider: Adelina Dial PA-C HPI narrative: Patient is a 43 year old assigned male at with a history of MS, alcohol use disorder, and substance use disorder presenting to the emergency department today with concerns of an MS flare. Patient states that he was here all day today and when he was discharged, he felt some what off balance and concerned that he is having an MS flare. Patient denies any dizziness, lightheadedness, abdominal pain, nausea, vomiting, fever, chills, blurry vision, double vision, loss of vision, chest pain, difficulty breathing, shortness of breath, back p ain, night sweats, pain with urination, increased urinary frequency, increased urinary urgency, blood in his urine or stool, syncope or a near syncopal episode, recent trauma or falls, bowel incontinence, bladder incontinence, or any other complaints at this time. Relieving factors: none Exacerbating factors: none Associated symptoms: denies other symptoms Treatments prior to arrival: none Related Data Home Medications ?Medication ?Instructions ?Recorded ?Confirmed cholecalciferol (vitamin D3) 5,000 units PO 2XW 09/30/23 09/30/23 multivitamin 1 tab PO DAILY 09/30/23 09/30/23 Allergies Allergy/AdvReac Type Severity Reaction Status Date / Time No Known Allergies Allergy Verified 02/29/24 17:51 [No Known Allergies*] Review of Systems Constitutional: Constitutional: Reports no additional constitutional complaints, Denies chills, Denies fever(s) and Denies night sweats Eyes: Eyes: Reports no additional eye complaints, Denies blurry vision, Denies change in vision, Denies diplopia, Denies eye discharge, Denies loss of vision and Denies eye pain ENT: Denies dizziness Cardiovascular: Cardiovascular: Reports no additional cardiovascular complaints, Denies chest pain, Denies lightheadedness, Denies Loss of Consciousness and Denies dyspnea Respiratory: Respiratory: Reports no additional respiratory complaints and Denies dyspnea Gastrointestinal: Gastrointestinal: Reports no additional gastrointestinal complaints, Denies abdominal pain, Denies melena, Denies hematochezia, Denies change in bowel habits and Denies change in stool character Genitourinary: Genitourinary: Reports no additional male genitourinary complaints, Denies hematuria, Denies oliguria, Denies difficulty urinating, Denies dysuria, Denies urinary frequency, Denies urinary hesitancy, Denies urinary incontinence and Denies urinary urgency Musculoskeletal: Musculoskeletal: Reports no additional musculoskeletal complaints, Denies numbness and Denies tingling Neurologic: Denies dizziness, Denies loss of vision, Denies numbness and Denies tingling Psychiatric: Psychiatric: Reports no additional psychiatric complaints Endocrine: Endocrine: Reports no additional endocrine complaints Hematologic/Lymphatic: Hematologic/Lymphatic: Reports no additional hematologic/lymphatic complaints Allergic/Immunologic: Allergic/Immunologic: Reports no additional allergic/immunologic complaints [facility] Past Medical History Attestation statement: The following information was validated with the patient. Source: old records reviewed and nursing notes reviewed Medical History Schizophrenia Bipolar 1 disorder Anxiety Depression Social History Social History Substance Use Type: Crack/Cocaine and Other Advance Directives: No Advance Directives Information Provided: No Do you have a plan to hurt others: No Plan Physical Exam ED Vital Signs: BMI result Body Mass Index 25.9 Const General: cooperative, no acute distress, alert and awake Nutritional Appearance: well nourished Orientation/consciousness: patient oriented x3 Limitations: no limitations HENMT Head: Yes normal to inspection and Yes atraumatic Ears: hearing grossly normal bilaterally and external ears normal General nose exam: Normal external nose present, no nasal discharge noted and no epistaxis Face and sinus: Yes normal facial exam, No abrasion and No laceration Mouth: Normal oral and palatal mucosa present, no drooling and no muffled voice Eyes General: appearance normal, both eyes and all related structures Periorbital: periorbital findings normal Eyelids: Yes eyelids normal Conjunctivae: conjunctivae normal Pupils: Equal, round and reactive pupils present EOM: EOMs intact bilaterally Neck Neck: Yes normal visual inspection, Yes full ROM and Yes no lymphadenopathy Chest Chest palpation & inspection: normal inspection of the chest Resp Effort & Inspection: normal respiratory effort and able to speak in complete sentences GI Inspection: Yes normal to inspection Neuro General: patient oriented x3 and moves all extremities Cranial nerves: Yes Equal, round and reactive pupils present Cognition (Neuro): normal cognition Extrem General: Yes normal to inspection, Yes full ROM and Yes capillary refill normal Psych Appearance: grossly normal Mental Status: mental status grossly normal Affect: normal affect Attitude: cooperative Thought process: Normal thought process present Thought content: Normal thought content present Insight: Good insight present (Psych) Course Course Course Narrative: RME performed by Adelina Dial PA-C. Patient is a 43 year old assigned male at presenting to the emergency department with concerns of an MS flare. Patient states that he is concerned he is having an MS flare because he feels more off balanced as of lately and has not been eating well. Detailed physical exam and review of systems are deferred to the front desk monitor. Patient placed back in the waiting room pending room availability. Patient had lab work done in the [facility] ED earlier today. Medical Decision Making Medical Decision Making MDM Narrative: Patient is a 43 year old assigned male at with a history of MS, alcohol use disorder, and substance use disorder presenting to the emergency department today with concerns of an MS flare. Patient's limited physical exam performed in triage was unremarkable. Patient left the department without completing treatment. Patient left the department before myself or any of the other emergency department clinicians could explain to or review with the patient; physical exam findings, test results, need or lack there of for additional testing, need or lack there of for a procedure to be performed, need or lack there of for hospital admission / transfer, need or lack there of for prescription medication, treatment options, or a treatment plan. Differential Diagnosis Differential Diagnoses: The differential diagnosis associated with the presentation includes MS flare Admission/Observation Consideration of admission/observation: Escalation of care including admission/observation considered Patient would have been admitted to the hospital had he completed his work up and it had any findings where hospital admission was appropriate, his clinical presentation warranted hospital admission, had myself or any other emergency supervisor line department had the ability to discuss need or lack there of for hospital admission, and the patient hadn't left the department without completing treatment. Discharge Plan Discharge Clinical Impression: Multiple sclerosis Patient Disposition: Left W/O Completing Treatment Prescriptions: No Action cholecalciferol (vitamin D3) 5,000 units PO 2XW multivitamin 1 tab PO DAILY Interventions: LWBS Worksheet Last Done: 02/29/24 22:00 Discharge Date/Time: 02/29/24 22:01
--- NOTE | 2024-02-29 21:46 | PC.NURSE ---
no answer in [facility]
== END 2024-02-29 22:01 | disposition left against medical advice (07) ==
PROVIDERS: Emergency Provider Emergency Medicine
DX: G35 Multiple sclerosis (principal)
CPT/HCPCS: 99281